=== PATIENT | female | born 1980 | race Caucasian/White ===

== ENCOUNTER 2017-09-05 12:48 | Emergency (ER) | payer OTHER ==
[~2017-09-05] VITALS: Ht 170.2 cm; Wt 81.7 kg
[2017-09-05] MEDS ORDERED: VITAMIN B-1100 M1 PO (12:51)
[2017-09-05] MEDS ORDERED: MEDROLDOSEPACK PO (13:42)
[2017-09-05] MEDS ORDERED: CLEOCIN HCL300 MG PO (13:42)
[2017-09-05] MEDS ORDERED: TORADOL 10 MG T10 MG PO (13:42)
[2017-09-05 14:05] VITALS: BP 103/59
== END 2017-09-05 14:06 | disposition home or self-care (01) ==
LOC: M.ERS 12:48
DX: J03.90 Acute tonsillitis, unspecified (principal); F17.210 Nicotine dependence, cigarettes, uncomplicated; Z88.0 Allergy status to penicillin

== ENCOUNTER 2018-06-22 12:56 | Emergency (ER) | payer BC ==
[~2018-06-22] VITALS: Ht 167.6 cm; Wt 79.4 kg
[~2018-06-22 12:56] MED LIST: CLEOCIN HCL300 MG PO; MEDROLDOSEPACK PO; TORADOL 10 MG T10 MG PO; VITAMIN B-1100 M1 PO
[2018-06-22 13:40] LABS: ABSOLUTE BASOPHILS 0.1 thou/uL (0.0-0.2); ABSOLUTE EOSINOPHILS 0.3 thou/uL (0.0-0.7); ABSOLUTE LYMPHOCYTES 1.9 thou/uL (0.8-5.3); ABSOLUTE NEUTROPHILS 14.7 thou/uL (1.6-8.1); BASOPHILS 0.5 %; EOSINOPHILS 1.9 %; HEMATOCRIT 37.9 % (37.0-47.0); HEMOGLOBIN 12.7 gm/dL (12.0-15.0); LYMPHOCYTES 10.4 %; MCH 30.9 pg (26.0-34.0); MCHC 33.4 g/dL (28.0-37.0); MCV 92.4 fL (80.0-100.0); MONOCYTES 5.7 %; MPV 7.8 fl. (7.2-11.1); NUCLEATED RBCS 0 /100WBC; PLATELET COUNT* 241 thou/uL (150-400); POLYS 81.5 %; RDW-CV 13.3 % (10.5-14.5)
[2018-06-22 13:44] LABS: URINE BILIRUBIN NEGATIVE (Negative); URINE BLOOD 3+ (Negative); URINE CLARITY CLEAR; URINE COLOR BROWN; URINE GLUCOSE-RANDOM NEGATIVE (Negative); URINE KETONES NEGATIVE (Negative); URINE NITRITE-REFLEX NEGATIVE (Negative); URINE PROTEIN 2+ (Negative); URINE SPECIFIC GRAVITY >= 1.030 (1.005-1.030); URINE UROBILINOGEN 0.2 E.U./dl (0.2-1.0)
[2018-06-22 13:50] LABS: URINE LEUKOCYTES-REFLEX 2+ (Negative)
[2018-06-22 13:52] LABS: ALBUMIN 3.3 g/dL (3.4-5.0); CALCIUM 8.6 mg/dL (8.5-10.1); CREATININE 0.8 mg/dL (0.6-1.3); POTASSIUM 3.5 mmol/L (3.5-5.1); TOTAL BILIRUBIN 0.3 mg/dL (<0.1-1.0)
[2018-06-22 13:54] LABS: MUCUS 0-3 Light strn/LPF (None Seen); SQUAMOUS 0-3 Few /LPF (0-3); URINE RBC >20 Many /HPF (0-2); URINE WBC-REFLEX >25 Many /HPF (0-5); WBC CLUMPS Few (None Seen)
[2018-06-22 13:55] LABS: BACTERIA-REFLEX >30 Many /HPF (None Seen); CASTS None Seen /LPF (None Seen); CRYSTALS None Seen /LPF (None Seen)
[2018-06-22] MEDS ORDERED: DOXYCYCLINE MO100 M1 PO (15:35)
[2018-06-22] MEDS ORDERED: NORCO 5-325 TA1 EACH PO (15:35)
[2018-06-22] MEDS ORDERED: KEFLEX500 M1 PO (15:37)
[2018-06-22 16:18] VITALS: BP 117/65
== END 2018-06-22 16:19 | disposition home or self-care (01) ==
LOC: M.ERS 12:56
PROVIDERS: Physician Assistant
DX: N89.8 Other specified noninflammatory disorders of vagina (principal); N39.0 Urinary tract infection, site not specified; F17.210 Nicotine dependence, cigarettes, uncomplicated; Z88.0 Allergy status to penicillin

== ENCOUNTER 2019-09-21 19:58 | Emergency (ER) | payer BC ==
[~2019-09-21] VITALS: Ht 167.6 cm; Wt 84.8 kg
[~2019-09-21 19:58] MED LIST changes: +DOXYCYCLINE MO100 M1 PO; +KEFLEX500 M1 PO; +NORCO 5-325 TA1 EACH PO
[2019-09-21] MEDS ORDERED: MUPIROCIN15 GM TOP (20:35)
[2019-09-21] MEDS ORDERED: DOXYCYCLINE 10100 MG PO (20:35)
[2019-09-21 21:00] VITALS: BP 126/78
== END 2019-09-21 21:01 | disposition home or self-care (01) ==
LOC: M.ERS 19:58
DX: L03.031 Cellulitis of right toe (principal); F17.210 Nicotine dependence, cigarettes, uncomplicated; Z88.0 Allergy status to penicillin

== ENCOUNTER 2020-05-17 16:18 | Emergency (ER) | payer BC ==
[~2020-05-17] VITALS: Ht 167.6 cm; Wt 87.1 kg
[~2020-05-17 16:18] MED LIST changes: +DOXYCYCLINE 10100 MG PO; +MUPIROCIN15 GM TOP
[2020-05-17] MEDS ORDERED: PREVAGEN (16:36)
[2020-05-17] MEDS ORDERED: FLONASE 0.05%50 MCG NARES (17:01)
[2020-05-17] MEDS ORDERED: MEDROLDOSEPACK PO (17:01)
[2020-05-17] MEDS ORDERED: HYDROCORTISONE3011 TOP (17:01)
[2020-05-17 17:48] VITALS: BP 107/64
== END 2020-05-17 17:49 | disposition home or self-care (01) ==
LOC: M.ERS 16:18
DX: J30.9 Allergic rhinitis, unspecified (principal); L25.9 Unspecified contact dermatitis, unspecified cause; Z88.0 Allergy status to penicillin

== ENCOUNTER 2021-02-14 17:46 | Emergency (ER) | payer OTHER ==
[~2021-02-14] VITALS: Ht 167.6 cm; Wt 88.5 kg
[~2021-02-14 17:46] MED LIST changes: +FLONASE 0.05%50 MCG NARES; +HYDROCORTISONE3011 TOP; +PREVAGEN
[2021-02-14 17:59] VITALS: BP 124/73
[2021-02-14] MEDS ORDERED: MEDROLDOSEPACK PO (18:11)
[2021-02-14] MEDS ORDERED: CEPHALEXIN500 MG PO (18:11)
[2021-02-14] MEDS ORDERED: CIPROFLOXIN HC2.5 M1 OTIC (18:11)
[2021-02-14] MEDS ORDERED: APAP W/CODEINE1 TA2 PO (18:11)
== END 2021-02-14 18:29 | disposition home or self-care (01) ==
LOC: M.ERS 17:46
DX: H72.91 Unspecified perforation of tympanic membrane, right ear (principal); J02.9 Acute pharyngitis, unspecified; F17.210 Nicotine dependence, cigarettes, uncomplicated; Z88.0 Allergy status to penicillin